=== PATIENT | female | born 1940 | race Caucasian/White ===

== ENCOUNTER 2023-07-01 23:07 | Inpatient (IN) | payer OTHER, MEDICAID, MEDICARE ==
[~2023-07-01] VITALS: Ht 165.1 cm; Wt 59.9 kg
[2023-07-01] MEDS ORDERED: ASPIRIN 81MG TABLET PO ONE (23:30)
[2023-07-02 00:09] LABS: MEAN PLATELET VOLUME 8.5 fl (7.4-10.4)
[2023-07-02 00:21] LABS: HEMATOCRIT. 34.2 % (36.0-48.0); HEMOGLOBIN. 11.4 g/dL (12.0-16.0); MEAN CORPUSCULAR HEMOGLOBIN 29.8 pg (28.0-32.0); MEAN CORPUSCULAR HGB CONC 33.3 g/dL (31.0-37.0); MEAN CORPUSCULAR VOLUME 89.7 fL (81.0-99.0); PLATELET 259 x1000/uL (130-400); RED BLOOD CELL COUNT 3.81 mill/uL (4.2-5.4); RED CELL DISTRIBUTION WIDTH 16.2 % (11.6-14.6); WHITE BLOOD COUNT 8.6 x1000/uL (4.5-11.0)
[2023-07-02 00:25] LABS: ALANINE AMINOTRANSFERASE 16 IU/L (10-49); ASPARTATE AMINOTRANSFERASE 26 IU/L (<34); BILIRUBIN TOTAL 0.3 mg/dL (0.1-1.0); CALCIUM 9.4 mg/dL (8.7-10.4); CARBON DIOXIDE 25 mEq/L (21-32); CHLORIDE 104 mEq/L (98-107); CREATININE 1.2 mg/dL (0.6-1.0); GLUCOSE 140 mg/dL (70-105); PROTEIN TOTAL 6.6 g/dL (6.0-8.3); SODIUM 139 mEq/L (136-145); THYROID STIMULATING HORMONE 1.28 uIU/mL (0.55-4.78); TROPONIN I HIGH SENSITIVITY 24 ng/L (3.0-34); UREA NITROGEN BLOOD 23 mg/dL (9-23)
[2023-07-02 00:28] LABS: DIFFERENTIAL COMMENT 1
[2023-07-02 00:34] LABS: PLATELET ESTIMATE NORMAL
[2023-07-02 10:13] LABS: TROPONIN I HIGH SENSITIVITY 128 ng/L (3.0-34)
[2023-07-02 11:45] VITALS: BP 143/46; PULSE 96; RESP 17; TEMP 96.9
[2023-07-03] VITALS: BP 143/46; PULSE 68; RESP 17; TEMP 96.9
[2023-07-03 04:00] VITALS: BP 138/50; PULSE 64; RESP 17; TEMP 97.4
[2023-07-03] MEDS: BLOOD SUGAR DIAGNOSTIC STRIP TEST SCH ×4 (07:21→21:00)
[2023-07-03 07:50] VITALS: BP 145/58; PULSE 95; RESP 20; TEMP 96.8
[2023-07-03] MEDS: INSULIN LISPRO 100 UNITS/ML SUBCUT SCH ×4 (08:10→21:00)
[2023-07-03] MEDS ORDERED: DEXTROSE 50% WATER 50ML SYRINGE IV PRN (08:15)
[2023-07-03] MEDS: METOPROLOL TARTRATE 50MG TABLET PO SCH ×2 (08:52→21:07)
[2023-07-03] MEDS: ENOXAPARIN 40MG/0.4ML SYR SUBCUT SCH (08:53)
[2023-07-03 10:54] LABS: BASOPHILS % 0.6 % (0.0-2.0); EOSINOPHILS % 4.5 % (0.0-5.0); HEMATOCRIT. 36.7 % (36.0-48.0); HEMOGLOBIN. 12.6 g/dL (12.0-16.0); LYMPHOCYTES % 25.8 % (20.0-50.0); MEAN CORPUSCULAR HEMOGLOBIN 29.9 pg (28.0-32.0); MEAN CORPUSCULAR HGB CONC 34.3 g/dL (31.0-37.0); MEAN CORPUSCULAR VOLUME 87.2 fL (81.0-99.0); MEAN PLATELET VOLUME 8.8 fl (7.4-10.4); MONOCYTES % 10.8 % (2.0-8.0); NEUTROPHILS % 58.3 % (40.0-76.0); PLATELET 286 x1000/uL (130-400); RED BLOOD CELL COUNT 4.21 mill/uL (4.2-5.4); RED CELL DISTRIBUTION WIDTH 16.6 % (11.6-14.6); WHITE BLOOD COUNT 5.9 x1000/uL (4.5-11.0)
[2023-07-03 12:00] VITALS: BP 136/58; PULSE 66; RESP 18; TEMP 97
[2023-07-03 13:19] LABS: ALANINE AMINOTRANSFERASE 15 IU/L (10-49); ALBUMIN 4.3 g/dL (3.2-4.8); ASPARTATE AMINOTRANSFERASE 30 IU/L (<34); BILIRUBIN TOTAL 0.5 mg/dL (0.1-1.0); CALCIUM 9.9 mg/dL (8.7-10.4); CARBON DIOXIDE 27 mEq/L (21-32); CHLORIDE 100 mEq/L (98-107); CHOLESTEROL 112 mg/dL (<200); CREATININE 0.9 mg/dL (0.6-1.0); GLUCOSE 158 mg/dL (70-105); HDL CHOLESTEROL 31 mg/dL (>65); LDL CHOLESTEROL 75 mg/dL (5-100); POTASSIUM 4.2 mEq/L (3.5-5.1); PROTEIN TOTAL 7.1 g/dL (6.0-8.3); SODIUM 138 mEq/L (136-145); THYROID STIMULATING HORMONE 1.18 uIU/mL (0.55-4.78); TRIGLYCERIDE 121 mg/dL (0-150); UREA NITROGEN BLOOD 14 mg/dL (9-23)
[2023-07-03 16:00] VITALS: BP 96/66; PULSE 60; RESP 18; TEMP 96.9
[2023-07-03] MEDS ORDERED: METO-539 MT (16:21)
[2023-07-03 20:00] VITALS: BP 146/114; PULSE 85; RESP 19; TEMP 97
[2023-07-03] MEDS ORDERED: ATORVASTATIN CALCIUM 40MG TABLET PO SCH (21:00)
[2023-07-04] VITALS: BP 115/51; PULSE 59; RESP 19; TEMP 96.3
[2023-07-04 04:00] VITALS: BP 141/58; PULSE 61; RESP 18; TEMP 96.4
[2023-07-04] MEDS: INSULIN LISPRO 100 UNITS/ML SUBCUT SCH (07:10)
[2023-07-04] MEDS: BLOOD SUGAR DIAGNOSTIC STRIP TEST SCH (07:18)
[2023-07-04 08:00] VITALS: BP 119/56; PULSE 80; RESP 20; TEMP 98.3
[2023-07-04] MEDS: ENOXAPARIN 40MG/0.4ML SYR SUBCUT SCH (09:50)
[2023-07-04] MEDS: METOPROLOL TARTRATE 50MG TABLET PO SCH (09:57)
[2023-07-04 12:14] LABS: CLARITY URINE CLEAR (CLEAR); COLOR URINE YELLOW (YELLOW); GLUCOSE URINE NEGATIVE (NEGATIVE); KETONES URINE NEGATIVE (NEGATIVE); LEUKOCYTE ESTERASE URINE NEGATIVE (NEGATIVE); NITRITE URINE NEGATIVE (NEGATIVE); OCCULT BLOOD URINE TRACE (NEGATIVE); PROTEIN URINE NEGATIVE (NEGATIVE); SPECIFIC GRAVITY URINE 1.016 (1.005-1.030); UROBILINOGEN URINE 0.2 E.U./dL (0.2-1.0)
[2023-07-04 13:44] LABS: RBC URINE 0-2 /hpf (0-2)
[2023-07-04 13:45] LABS: SQUAMOUS EPITHELIAL CELL URINE RARE /lpf (RARE/1+); WBC URINE 0-2 /hpf (0-2)
[2023-07-04 13:47] LABS: BACTERIA URINE TRACE
[2023-07-04 14:39] VITALS: BP 119/56; PULSE 80; TEMP 98.3; O2SAT 98
== END 2023-07-04 11:20 | disposition home or self-care (01) | DRG 310 ==
LOC: ER 23:22 → 7EST 07-02 02:07
PROVIDERS: ADMIT Internal Medicine; ATTEND Internal Medicine
DX: I47.10 Supraventricular tachycardia, unspecified (principal); E11.22 Type 2 diabetes mellitus with diabetic chronic kidney disease; I12.9 Hypertensive chronic kidney disease with stage 1 through stage 4 chronic kidney disease, or unspecified chronic kidney disease; N18.30 Chronic kidney disease, stage 3 unspecified; E78.2 Mixed hyperlipidemia; I45.10 Unspecified right bundle-branch block; Z79.899 Other long term (current) drug therapy; Z79.4 Long term (current) use of insulin
CPT/HCPCS: 36415; 71045; 80053; 80061; 81003; 82962; 83036; 83880; 84443; 84484; 85025; 93005; 93306; 93880; 99291; J1650; J1815